=== PATIENT | female | born 1990 | race Caucasian/White ===

== ENCOUNTER 2016-06-18 01:32 | Emergency (ER) | payer OTHER ==
[~2016-06-18] VITALS: Ht 167.6 cm; Wt 123.6 kg
[~2016-06-18 01:32] MED LIST: IBUPROFEN800 MG PO; LEXAPRO20 MG PO; LORTAB 5-325 M1 EACH PO; NIFEDIPINE ER30 MG PO; OMEPRAZOLE20 M2 PO; OXYCODONE HCL5 MG PO; PERCOCET 5/31 TABLET PO; PRILOSEC20 MG PO; PROAIR HFA8.5 GM IH; PROMETHAZINE HC25 M1 PO; SINGULAIR10 MG PO; TRAZODONE HCL50 MG PO; VISTARIL25 MG PO; ZANTAC150 MG PO; ZOFRAN ODT4 MG PO; ZYRTEC10 M2 PO
[2016-06-18] MEDS ORDERED: PREVACID30 MG PO (02:25)
[2016-06-18] MEDS ORDERED: SERTRALINE HCL50 MG PO (02:25)
[2016-06-18 02:38] LABS: HEMATOCRIT 38.8 % (36.0-46.0); MCH 25.8 PG (29.0-34.0); MCHC 34.5 G/DL (30.0-36.0); MCV 74.6 FL (83-99); MEAN PLAT.VOLUME 10.2 uM^3 (9.5-12.4); PLATELET COUNT 230 K/uL (156-360); RBC DIS.WIDTH-CV 14.3 % (11.8-14.6); WHITE BLOOD COUNT 15.8 K/uL (4.1-10.2)
[2016-06-18 02:49] LABS: CHLORIDE 107 mEq/L (99-109); SODIUM 136 mEq/L (136-147)
[2016-06-18 02:51] LABS: GLUCOSE 134 mg/dL (70-99)
[2016-06-18 02:52] LABS: ANION GAP 9 MEQ/L (2-14)
[2016-06-18 02:53] LABS: TOTAL BILIRUBIN 0.5 mg/dL (0.0-1.0)
[2016-06-18 02:54] LABS: ALKALINE PHOSPHATASE 70 IU/L (3-129)
[2016-06-18 02:55] LABS: GFR ESTIMATE (CALCULATED) > 59 mL/min/
[2016-06-18 02:56] LABS: DIRECT BILIRUBIN 0.2 mg/dL (0.0-0.3); UREA NITROGEN (BUN) 10 mg/dL (9-23)
[2016-06-18 02:58] LABS: LIPASE 16 U/L (1.0-51.0)
[2016-06-18 03:04] LABS: QUANTITATIVE HCG 10481.2 MIU/ML
[2016-06-18 03:11] LABS: ADD MIUA? YES; BILIRUBIN NEGATIVE; BLOOD NEGATIVE; COLOR DK YELLOW ((YELLOW)); GLUCOSE (STRIP) NEGATIVE; KETONES TRACE; LEUKOCYTES SMALL; NITRITE NEGATIVE; PROTEIN (STRIP) 30; SPECIFIC GRAVITY 1.025 (1.000-1.030)
[2016-06-18 03:24] LABS: BACTERIA 3+; CRYSTALS NONE SEEN; EPITHELIAL CELLS 3+; MUCUS 3+; RED BLOOD CELLS NONE SEEN /HPF (0-5)
[2016-06-18 03:25] LABS: CASTS PRESENT /LPF; FINE GRANULAR CASTS 0-5 /LPF; HYALINE CASTS 0-5 /LPF; UCUL ADDED? YES
[2016-06-18 03:59] VITALS: BP 138/68
== END 2016-06-18 04:00 | disposition home or self-care (01) ==
LOC: EME 01:32
DX: R11.2 Nausea with vomiting, unspecified (principal)
CPT/HCPCS: 80048; 80076; 81003; 83690; 84702; 85027; 87086; 99281; 99284; J2405; J7030; S0028

== ENCOUNTER 2016-10-20 02:37 | Inpatient (IN) | payer BC, OTHER ==
[~2016-10-20] VITALS: Ht 167.6 cm; Wt 127.3 kg
[2016-10-20] VITALS (10 sets, daily range): BP systolic 117–143; BP diastolic 58–93
[~2016-10-20 02:37] MED LIST changes: +PREVACID30 MG PO; +SERTRALINE HCL50 MG PO
[2016-10-20] MEDS ORDERED: SERTRALINE HCL100 MG PO (03:08)
[2016-10-20] MEDS ORDERED: CLARITIN10 M3 PO (03:09)
[2016-10-20 04:14] LABS: EOSINOPHIL (%) 0.8 % (0-5); EOSINOPHIL COUNT 0.1 K/uL (0-0.3); HEMATOCRIT 36.1 % (36.0-46.0); IMMATURE GRANULOCYTE (%) 1.3 % (0.0-0.7); IMMATURE GRANULOCYTE COUNT 0.2 K/uL; INSTRUMENT ABS NEUTROPHIL CT 9.1 K/uL; LYMPHOCYTE COUNT 2.3 K/uL (1.0-2.8); MCH 22.7 PG (29.0-34.0); MCV 73.2 FL (83-99); MEAN PLAT.VOLUME 12.1 uM^3 (9.5-12.4); MONOCYTE (%) 6.1 % (3-12); MONOCYTE COUNT 0.8 K/uL (0-0.8); NEUTROPHIL (%) 73.2 % (45-76); NEUTROPHIL COUNT 9.1 K/uL (1.8-6.4); PLATELET COUNT 199 K/uL (156-360); RBC DIS.WIDTH-CV 14.8 % (11.8-14.6); RBC DIS.WIDTH-SD 38.5 % (39-53); RED BLOOD COUNT 4.93 M/uL (3.80-5.20); WHITE BLOOD COUNT 12.4 K/uL (4.1-10.2)
[2016-10-20 05:16] LABS: METH RESISTANT S AUREUS PCR NEGATIVE (NEGATIVE)
[2016-10-20 05:17] LABS: PROBE CHECK PASS; SPECIMEN PROCESSING CONTROL PASS
[2016-10-21 03:52] VITALS: BP 134/61
[2016-10-21 07:49] VITALS: BP 139/77
[2016-10-21 11:09] VITALS: BP 134/63
[2016-10-21] MEDS ORDERED: PERCOCET 5/31 TABLET PO (12:11)
[2016-10-21] MEDS ORDERED: MOTRIN400 MG PO (12:11)
[2016-10-21 15:14] VITALS: BP 139/67
[2016-10-22 07:34] VITALS: BP 143/73
== END 2016-10-22 14:10 | disposition home or self-care (01) | DRG 765 ==
LOC: LDRP-OP → 2WEST 02:38 → LDRP-OP 11-30 11:43
PROVIDERS: Obstetrics & Gynecology
PROC: 10D00Z1 Extraction of Products of Conception, Low, Open Approach (ICD-10-PCS; principal; 2016-10-20)
DX: O34.211 Maternal care for low transverse scar from previous cesarean delivery (principal); O24.429 Gestational diabetes mellitus in childbirth, unspecified control; E66.01 Morbid (severe) obesity due to excess calories; Z68.41 Body mass index [BMI] 40.0-44.9, adult; Q05.9 Spina bifida, unspecified; F32.9 Major depressive disorder, single episode, unspecified; O99.344 Other mental disorders complicating childbirth; F41.9 Anxiety disorder, unspecified; K21.9 Gastro-esophageal reflux disease without esophagitis; Z3A.38 38 weeks gestation of pregnancy; Z37.0 Single live birth; O99.353 Diseases of the nervous system complicating pregnancy, third trimester
CPT/HCPCS: 85025; 86900; 86901; 87081; 87641; J0690; J1100; J1170; J2274; J2405; J7120

== ENCOUNTER 2017-03-18 13:06 | Emergency (ER) | payer BC, OTHER ==
[~2017-03-18] VITALS: Ht 167.6 cm; Wt 125.2 kg
[~2017-03-18 13:06] MED LIST changes: +CLARITIN10 M3 PO; +MOTRIN400 MG PO; +SERTRALINE HCL100 MG PO
[2017-03-18 13:17] VITALS: BP 126/82
== END 2017-03-18 15:15 | disposition left against medical advice (07) ==
LOC: EME 13:06
DX: R42 Dizziness and giddiness (principal); Z53.21 Procedure and treatment not carried out due to patient leaving prior to being seen by health care provider